=== PATIENT | male | born 1955 ===

== ENCOUNTER 2016-08-09 07:57 | Day surgery (SDC) | payer MEDICAID ==
[2016-08-09 08:24] VITALS: BMI 22.4
[2016-08-09 08:55] VITALS: O2SAT 100
[2016-08-09] MEDS ORDERED: Lactated Ringer's 1,000 ML IV ONE ×2 (09:06)
[2016-08-09] MEDS ORDERED: Propofol 10 mg/ml Inj (20 ML) ONE (09:33)
[2016-08-09] MEDS ORDERED: Midazolam 2 MG/2 ML VIAL ONE (09:33)
[2016-08-09] MEDS ORDERED: Lidocaine 2% Jelly (Uro-Jet) ONE (10:26)
[2016-08-09] MEDS ORDERED: Gentamicin 160 MG in Sodium Chloride 0.9% 100 ML IVPB ONE (10:30)
[2016-08-09] MEDS: Ciprofloxacin 400mg/200ml D5W 400 MG/200 ML BAG IVPB ONE ×2 (10:35→10:48)
[2016-08-09] MEDS ORDERED: HYDROmorphone 0.5 mg/0.5 ml ISec IVP PRN ×2 (10:45→11:22)
[2016-08-09] MEDS: Gentamicin 160 MG in Sodium Chloride 0.9% 100 ML IVPB ONE ×2 (10:48→10:55)
--- NOTE | 2016-08-09 11:57 | PCM.SURG1 ---
Surgeon's Initial Post Op Note - Surgeon's Notes Surgeon: Vladislav [employer]igerator Servicer: VASILE Type of Anesthesia: General LMA Anesthesia Administered By: staff Pre-Operative Diagnosis: BPH/VELOZ/LUTS Operative Findings: BPH/VELOZ Post-Operative Diagnosis: SAME Operation Performed: TULAP Specimen/Specimens Removed: NA Estimated Blood Loss: EBL {In ML}: 0 Blood Products Given: N/A Drains Used: No Drains Post-Op Condition: Good Date of Surgery/Procedure: 08/09/16 Time of Surgery/Procedure: 11:56
--- NOTE | 2016-08-09 12:42 | OP ---
PROCEDURE DATE: 08/09/2016 PREOPERATIVE DIAGNOSES: Benign prostatic hypertrophy, bladder outlet obstruction and lower urinary t ract symptoms. POSTOPERATIVE DIAGNOSES: Benign prostatic hypertrophy, bladder outlet obstruction and lower urinary tract symptoms. PROCEDURE: Cystoscopy and GreenLight laser vaporization of the prostate (TULAP). PROCEDURE: As follows: The patient was asked to sign a detailed informed consent. All risks and co mplications of the procedure were discussed with the patient. He agreed to accept these risks and po ssible complications. He is also aware of the alternate methods of treating BPH. He agreed, signed the consent and was brought into the room. A timeout was taken according to the rules and regulation s of [facility]. The patient was draped and prepped in the usual manner. After receiving proph ylactic antibiotics, he was cystoscoped with a #21 Storz panendoscope. The pendulous and membranous urethra was normal. The prostatic urethra showed trilobar hypertrophy of the prostate. The bladder was entered atraumatically. There were no urothelial tumors or stones. There was compensatory trabe culation of bladder +3-4. The resectoscope element was inserted into the sheath after removing the c ystoscope element and the laser fiber was inserted. Vaporization of the prostate was begun at 11 o'c lock and carried down to 6 o'clock vaporizing all tissue from just distal to the bladder neck to just proximal to the verumontanum. On the opposite lobe, the base tissue and the roof tissue were vapori zed in similar fashion. Care was taken to avoid injury to the verumontanum, external sphincter, uret eral orifices or bladder. None occurred. The patient tolerated this procedure very well. Meticulou s hemostasis was achieved. The bladder was filled with sterile irrigation fluid and the scope was re moved. A #20 2-way 5 mL catheter was then inserted and inflated with a normal amount of saline. The patient was sent to the recovery room in good condition. Followup in our office tomorrow was arrang ed. Prescriptions for antibiotics and pain medication were given and instructions for management of all possible complications. Reynaldo Loomis MD cc: [id number] TT: 08/09/2016 12:41:10 sn
[2016-08-09 13:17] VITALS: BP 110/70; PULSE 80; RESP 18; TEMP 97.6
== END 2016-08-09 13:17 | disposition home or self-care (01) ==
LOC: C.SDS 07:57
PROVIDERS: ATTEND Urology
DX: N40.1 Benign prostatic hyperplasia with lower urinary tract symptoms (principal); N13.8 Other obstructive and reflux uropathy
CPT/HCPCS: 52648; J0744; J1580; J7120